=== PATIENT | female | born 1970 | race Caucasian/White ===

== ENCOUNTER 2017-11-15 00:37 | Emergency (ER) | payer OTHER ==
[~2017-11-15] VITALS: Ht 167.6 cm; Wt 108.9 kg
[2017-11-15] MEDS ORDERED: CLEOCIN HCL150 MG PO (00:50)
[2017-11-15] MEDS ORDERED: PRILOSEC OTC20 MG PO (00:51)
[2017-11-15] MEDS ORDERED: NEURONTIN600 MG PO (00:52)
[2017-11-15] MEDS ORDERED: METFORMIN HCL500 MG PO (00:52)
[2017-11-15] MEDS ORDERED: MIRAPEX ER1.5 MG PO (00:52)
[2017-11-15] MEDS ORDERED: PERCOCET 7.5-31 EACH PO (01:16)
[2017-11-15 01:24] VITALS: BP 156/89
== END 2017-11-15 01:26 | disposition home or self-care (01) ==
LOC: M.ERS 00:37
DX: K02.9 Dental caries, unspecified (principal); M79.7 Fibromyalgia; Z88.0 Allergy status to penicillin; Z88.2 Allergy status to sulfonamides